=== PATIENT | female | born 1990 | race Hispanic/Latino ===

== ENCOUNTER 2018-08-25 04:18 | Inpatient (IN) | payer OTHER ==
[2018-08-25] MEDS ORDERED: MEPERIDINE HCL 25 MG/0.5 ML IV PRN (04:30)
[2018-08-25] MEDS ORDERED: PROMETHAZINE 25 MG/ML VIAL IM PRN (04:30)
[2018-08-25] MEDS ORDERED: CARBOPROST TROME 250 MCG/ML IM PRN (04:30)
[2018-08-25] MEDS ORDERED: BUTORPHANOL 1 MG/ML INJ IV PRN (04:30)
[2018-08-25] MEDS ORDERED: Ringers Lactate 1,000 ML IV PRN (04:30)
[2018-08-25] MEDS ORDERED: METHYLERGONOVINE 0.2MG/ML AMP IM PRN (04:30)
[2018-08-25] MEDS ORDERED: OXYTOCIN/LR 20 UNIT/1,000 ML BAG IV SCH ×2 (05:00→13:00)
[2018-08-25] MEDS ORDERED: Ringers Lactate 1,000 ML IV SCH (05:00)
[2018-08-25 05:40] LABS: RPR Titer ND
[2018-08-25 05:43] LABS: Urine Appearance CLEAR; Urine Bilirubin NEGATIVE (NEG); Urine Blood NEGATIVE (NEG); Urine Color YELLOW; Urine Glucose NEGATIVE (NEG); Urine Protein NEGATIVE (NEG); Urine Specific Gravity <=1.005 (1.005-1.030); Urine Urobilinogen 0.2 mg/dL (0.2-1.0); Urine pH 7.5 (5.0-7.0)
[2018-08-25 05:54] LABS: Urine Microscopic Reflex ORDER UMIC
[2018-08-25 06:04] LABS: Absolute Lymphocytes (CBC) 2.3 K/uL (0.7-4.9); Absolute Monocytes 0.6 K/uL (0.1-1.3); Absolute Neutrophil 4.2 K/uL (1.8-8.0); Basophils % 0.3 % (0-1.3); Eosinophils % 0.9 % (0-4.4); Hematocrit 27.4 % (36.0-45.0); Lymphocytes % 32.3 % (15.3-44.8); MPV 10.9 fL (7.6-11.3); Monocytes % 8.4 % (3.3-12.3); RBC Red Blood Cell Count 3.53 M/uL (3.86-4.86)
[2018-08-25 06:05] LABS: Urine Bacteria <20 /HPF (<20); Urine Culture Reflex Order REFLEXED; Urine RBC NONE SEEN /HPF (NONE SEEN)
[2018-08-25 06:11] VITALS: BMI 32.8
[2018-08-25] MEDS ORDERED: ROPIVACAINE HCL 100 ML IV PRN (07:50)
[2018-08-25] MEDS ORDERED: ROPIVACAINE HCL 0.2% 20ML AMP IV ONE (07:51)
[2018-08-25] MEDS ORDERED: FENTANYL CITR 100 MCG/2 ML IV ONE (07:51)
--- NOTE | 2018-08-25 11:40 | PREOPHP ---
Date of Admission: 08/25/2018 A 28-year-old 2, para 1, 39 weeks. Rh positive, immune to Rubella. Negative beta strep scre en, is 3.5 cm, 50% effaced, vertex, well applied -1 station. Rupture of membranes, clear fluid. FHT s normal, reactive. Koko regularly. Anticipate more rapid progress once she gets to 4-5. Pa tient will be requesting epidural. Full labor talk given. CARMELA/AKIKO Voice ID: [id number]
[2018-08-25] MEDS ORDERED: ONDANSETRON 4 MG (ODT) TAB PO PRN (12:01)
[2018-08-25] MEDS ORDERED: DIPHENHYDRAMINE 25 MG TAB/CAP PO PRN (12:01)
[2018-08-25] MEDS ORDERED: CEFAZOLIN/SWI 1gm 1 GM/10 ML SYR IV SCH (12:01)
[2018-08-25] MEDS ORDERED: ONDANSETRON 4 MG/2 ML VIAL IV PRN (12:01)
[2018-08-25] MEDS ORDERED: ACETAMINOPHEN 500 MG TAB PO PRN ×2 (12:01)
[2018-08-25] MEDS ORDERED: BISACODYL 10 MG RECTAL SUPP RECT PRN (12:01)
[2018-08-25] MEDS ORDERED: KETOROLAC 30 MG/ML INJ IV PRN (12:01)
[2018-08-25] MEDS ORDERED: KETOROLAC 30 MG/ML INJ IM PRN (12:01)
[2018-08-25] MEDS ORDERED: Oxycodone HCl/Acetaminophen 1 TAB TAB PO PRN (12:01)
[2018-08-25] MEDS ORDERED: D5LR 1,000 ML with OXYTOCIN 20 UNIT IV SCH ×2 (13:00)
[2018-08-25] MEDS ORDERED: IBUPROFEN 400 MG TAB PO PRN (18:49)
[2018-08-25 22:48] LABS: RPR (Rapid Plasma Reagin) NON-REACT (NON-REACT)
--- NOTE | 2018-08-25 23:15 | OP ---
Surgeon: Bruno Auguste MD Jeanie Hylton is a 28-year-old 2, para 1, 39 weeks, followed antepartum without complicat ions. Rh positive, immune to Rubella. Negative beta strep screen, for induction, 3 cm on admission. Rupture of membranes at 3.5 cm. Clear fluid. The patient went to an active labor pattern. Stadol 1 mg IV, Phenergan 25 mg IM x1 at approximately 5 cm. Requested and received epidural anesthesia. Second stage of approximately 30 minutes. Spontaneous vaginal delivery of an estimated 9 pound plus male . Apgars 9 and 9. No episiotomy. No laceration. Schultze delivery of the placenta was inspected and noted to be intact and normal. 300 cc estimated blood loss. Uterus contracted down we ll. Tolerated all procedures well. Final Diagnoses: Term intrauterine , 39 weeks, labor induction, vaginal delivery, epidural anesthesia. CARMELA/AKIKO Voice ID: [id number] Report ID: [id number]
[2018-08-26] MEDS: Oxycodone HCl/Acetaminophen 1 TAB TAB PO PRN ×2 (00:43→06:59)
[2018-08-26] MEDS ORDERED: MAGNESIUM HYDROXIDE 8% 30 ML PO PRN (12:01)
[2018-08-26 12:23] VITALS: BP 128/83; TEMP 97.5
--- NOTE | 2018-08-27 05:36 | DS ---
Date of Discharge: 08/26/2018 Hospital Course: A 28-year-old 2, para 1, 39 weeks. Delivered an [id number]-38-ounce male infa nt after about 20 minutes second stage. Apgars 9 and 9. No episiotomy. No lacerations. Rh positiv e, immune to Rubella. Negative beta strep screen. Epidural anesthesia. Estimated blood loss 300 cc . Schultze delivery of the placenta, which inspected and noted to be intact and normal. afebrile, ambulating, and voiding. Lochia is normal. She will be dismissed later this afternoon to report back to my office in 6 weeks for followup. To report any temperature elevation of 100 degrees or greater, severe pain, heavy bleeding, or any other type of abnormalities. No post epidural probl ems. She has had her Tdap immunization. Dismissed to tramadol for analgesia, although she knows thi s goes to the breast milk and may elect to take Motrin instead. Final Diagnosis: Intrauterine gestation, 39 weeks. Vaginal delivery. Epidural anesthesia. CARMELA/AKIKO Voice ID: [id number] Report ID: [id number]
[2018-08-29 04:22] LABS: HBsAG Nonreactive (Nonreactive)
== END 2018-08-26 13:35 | disposition home or self-care (01) | DRG 807 ==
LOC: 2ND-WC 04:18
PROVIDERS: ADMIT Specialist; ATTEND Specialist
PROC: 10E0XZZ Delivery of Products of Conception, External Approach (ICD-10-PCS; principal; 2018-08-25)
PROC: 10907ZC Drainage of Amniotic Fluid, Therapeutic from Products of Conception, Via Natural or Artificial Opening (ICD-10-PCS; 2018-08-25)
DX: O80 Encounter for full-term uncomplicated delivery (principal); Z37.0 Single live birth; Z3A.39 39 weeks gestation of pregnancy
CPT/HCPCS: 36415; 81003; 81015; 85025; 86592; 86901; 87086; 87088; 87340; J0595; J2210; J2550; J2590; J2795; J3010